=== PATIENT | male | born 1960 | race Two or more races ===

== ENCOUNTER 2021-07-31 06:41 | Day surgery (SDC) | payer OTHER ==
[~2021-07-31] VITALS: Ht 172.7 cm; Wt 86.2 kg
[~2021-07-31 06:41] MED LIST: ACID REDUCER20 M1 PO; FENOFIBRATE145 MG PO; NORVASC5 MG PO; ZESTRIL10 M1 PO
== END 2021-07-31 14:35 | disposition home or self-care (01) ==
LOC: CIR.AMB 06:41
PROVIDERS: ATTEND Orthopaedic Surgery
DX: S46.121A Laceration of muscle, fascia and tendon of long head of biceps, right arm, initial encounter (principal); M24.111 Other articular cartilage disorders, right shoulder; M75.121 Complete rotator cuff tear or rupture of right shoulder, not specified as traumatic; Z91.041 Radiographic dye allergy status; Z20.822 Contact with and (suspected) exposure to COVID-19; M75.41 Impingement syndrome of right shoulder; I10 Essential (primary) hypertension; E78.5 Hyperlipidemia, unspecified; K21.9 Gastro-esophageal reflux disease without esophagitis